=== PATIENT | male | born 1995 | race Asian ===

== ENCOUNTER 2023-08-13 00:12 | Emergency (ER) | payer OTHER, MEDICAID, SELFPAY ==
[2023-08-13] VITALS (11 sets, daily range): BP systolic 143–192; BP diastolic 85–106; PULSE 105–125; RESP 18–37; TEMP 37.1; O2SAT 96–99; BMI 45.6
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
[2023-08-13] MEDS: HALOPERIDOL 5 MG/ML VIAL IM (00:28)
[2023-08-13] MEDS: diphenhydrAMINE 50 MG/ML VIAL IM (00:28)
[2023-08-13] MEDS: LORazepam 2 MG/ML INJ IM (00:28)
[2023-08-13 00:53] LABS: Appearance Urine UA CLEAR; Bilirubin Urine UA NEGATIVE (NEGATIVE); Color Urine UA YELLOW; Glucose Urine UA 3+ g/dL (Negative); Ketones Urine UA TRACE (NEGATIVE); Leukocyte Esterase Urine UA NEGATIVE (NEGATIVE); Nitrite Urine UA NEGATIVE (Negative); Occult Blood Urine UA TRACE-INTACT (Negative); Protein Urine UA 1+ (Negative); Specific Gravity Urine UA <=1.005 (1.000-1.035); UR Morphine/Opiate cutoff 300 Negative (Negative); Ur Creatinine Normal (Normal); Ur Specific Gravity Normal (Normal); Urine Amphetamines Negative (Negative); Urine Barbiturates Negative (Negative); Urine Benzodiazepines Negative (Negative); Urine Cocaine Negative (Negative); Urine MDMA Negative (Negative); Urine Methadone Negative (Negative); Urine Methamphetamines Negative (Negative); Urine Oxycodone Negative (Negative); Urine Phencyclidine Negative (Negative); Urine Tetrahydrocannabinol Negative (Negative); Urine Tricyclic Antidepressant Negative (Negative); Urine pH Normal (Normal); Urobilinogen Urine UA 0.2 E.U./dL (0.2); pH Urine UA 6.5 (4.5-8.0)
[2023-08-13 00:57] LABS: Bacteria Urine None Seen; Culture Indicated Urine Cult Not Indicated; RBC Urine 1-5/HPF (0-5/HPF); Squamous Epithelial Cell Urine 0-1 /HPF (0-5/HPF); Transitional Epi Cells Urine 0-1/HPF (0-5/HPF); Urine Volume 10mL (spun); WBC Urine 0-1/HPF (0-5/HPF)
[2023-08-13 00:57] LABS: INR 0.9 (0.9-1.3); Prothrombin Time 10.4 SECONDS (9.4-12.5)
[2023-08-13 00:58] LABS: Add Manual Diff / Slide Review NO; Basophils Absolute Auto 100 /uL (0-100); Basophils Percent Auto 0.7 % (0-2); Eosinophils Absolute Auto 100 /uL (0-450); Eosinophils Percent Auto 0.4 % (2-4); Hematocrit 49.6 % (41-53); Hemoglobin 16.3 g/dL (13.5-17.5); Lymphocytes Absolute Auto 4800 /uL (1100-4500); Mean Corpuscular HGB Conc 32.9 % (30-36); Mean Corpuscular Hemoglobin 29.4 PG (26-34); Mean Corpuscular Volume 89.5 fL (80-100); Monocytes Absolute Auto 900 /uL (0-900); Monocytes Percent Auto 6.8 % (3-14); Neutrophils Absolute Auto 7800 /uL (1500-7000); Neutrophils Percent Auto 57.1 % (50-75); Platelet Count 390 X10^3/uL (150-400); Red Blood Cell Count 5.54 X10^6/uL (4.5-5.9); Red Cell Distribution Width 12.8 % (11.6-14.8); White Blood Cell Count 13.7 X10^3/uL (4.5-11.0)
[2023-08-13 01:04] LABS: Acetaminophen < 10 ug/mL (10-30); Albumin 4.9 g/dL (3.5-5.0); Albumin Globulin Ratio 1.1 (1.0-2.8); Alkaline Phosphatase 102 U/L (38-126); Aspartate Aminotransferase 48 IU/L (17-59); BUN Creatinine Ratio 12.8 (6-22); Bilirubin Total 0.7 mg/dL (0.2-1.3); Blood Urea Nitrogen 11 mg/dL (9-20); Calcium 9.8 mg/dL (8.4-10.2); Carbon Dioxide 16 mmol/L (22-32); Chloride 99 mmol/L (98-107); Creatine Kinase 1332 U/L (55-170); Estimated Glomerular Filt Rate > 60 mL/min (>60); Ethanol (ETOH) < 10 mg/dL; Globulin 4.5 g/dL (1.7-4.1); Glucose 396 mg/dL (70-100); Lipase 216 U/L (23-300); Potassium 4.2 mmol/L (3.4-5.1); Salicylate < 1.0 mg/dL (<20); Sodium 138 mmol/L (137-145); Total Protein 9.4 g/dL (6.3-8.2)
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
[2023-08-13 01:10] LABS: Alanine Aminotransferase 38 IU/L (<50); HEMOLYSIS 27 (0-50)
[2023-08-13 01:14] LABS: Troponin I < 0.012 ng/mL (0.01-0.034)
[2023-08-13] MEDS: SODIUM CHLORIDE 0.9% 1,000 ML 1000 ML IV ×2 (01:18→02:01)
--- NOTE | 2023-08-13 01:19 | PC.NURSE ---
Lab call taken for critical result. Lactate 9.0 and Glucose 396. BOYD Pierre advised.
[2023-08-13 01:34] LABS: Thyroid Stimulating Hormone 2.84 uIU/mL (0.47-4.68)
--- NOTE | 2023-08-13 01:55 | PC.NURSE ---
Pt declines to contact family members. Pt states that he lives with his parents and that they are probably sleeping and would not want to here from him.
--- NOTE | 2023-08-13 02:09 | PC.NURSE ---
Escorted pt to and from CT
--- NOTE | 2023-08-13 02:11 | PC.NURSE ---
Still in CT with pt during this check
[2023-08-13 02:23] LABS: Reflexed Lactate in 2 Hours Y
[2023-08-13 02:59] LABS: Lactate 2HR (Lactic Acid Rflx) 1.7 mmol/L (0.7-2.1)
== END 2023-08-13 03:28 | disposition home or self-care (01) ==
PROVIDERS: Emergency Provider Emergency Medicine; PCP Pediatrics
DX: R73.9 Hyperglycemia, unspecified (principal); R46.89 Other symptoms and signs involving appearance and behavior; S09.90XA Unspecified injury of head, initial encounter; V89.2XXA Person injured in unspecified motor-vehicle accident, traffic, initial encounter
CPT/HCPCS: 36415; 70450; 71045; 72125; 80053; 80305; 80320; 80329; 81001; 82550; 83605; 83690; 84443; 84484; 85025; 85610; 96360; 96361; 96372; 99285; G0480; J1200; J1630; J2060

== ENCOUNTER 2023-08-13 08:14 | Emergency (ER) | payer OTHER, MEDICAID, SELFPAY ==
[2023-08-13] VITALS (14 sets, daily range): BP systolic 119–176; BP diastolic 60–100; PULSE 86–111; RESP 17–23; TEMP 36.6; O2SAT 96–100; BMI 47.0
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
[2023-08-13] MEDS: OLANZapine ODT 10 MG TAB PO (08:51)
[2023-08-13] MEDS: SODIUM CHLORIDE 0.9% 1,000 ML 1000 ML IV ×2 (08:51→09:56)
[2023-08-13 08:52] LABS: Acetaminophen < 10 ug/mL (10-30); Add Manual Diff / Slide Review NO; Basophils Absolute Auto 100 /uL (0-100); Eosinophils Absolute Auto 0 /uL (0-450); Eosinophils Percent Auto 0.3 % (2-4); Hematocrit 44.8 % (41-53); Lymphocytes Absolute Auto 2300 /uL (1100-4500); Lymphocytes Percent Auto 19.8 % (25-40); Mean Corpuscular HGB Conc 33.5 % (30-36); Mean Corpuscular Hemoglobin 29.2 PG (26-34); Monocytes Absolute Auto 900 /uL (0-900); Monocytes Percent Auto 7.6 % (3-14); Neutrophils Absolute Auto 8400 /uL (1500-7000); Neutrophils Percent Auto 71.3 % (50-75); Platelet Count 308 X10^3/uL (150-400); Red Blood Cell Count 5.15 X10^6/uL (4.5-5.9); Red Cell Distribution Width 12.7 % (11.6-14.8); Salicylate < 1.0 mg/dL (<20); White Blood Cell Count 11.8 X10^3/uL (4.5-11.0)
[2023-08-13 08:53] LABS: Alanine Aminotransferase 31 IU/L (<50); Albumin 4.5 g/dL (3.5-5.0); Albumin Globulin Ratio 1.2 (1.0-2.8); Alkaline Phosphatase 89 U/L (38-126); Aspartate Aminotransferase 62 IU/L (17-59); BUN Creatinine Ratio 16.1 (6-22); Bilirubin Total 0.8 mg/dL (0.2-1.3); Blood Urea Nitrogen 10 mg/dL (9-20); Calcium 9.2 mg/dL (8.4-10.2); Carbon Dioxide 22 mmol/L (22-32); Chloride 103 mmol/L (98-107); Estimated Glomerular Filt Rate > 60 mL/min (>60); Ethanol (ETOH) < 10 mg/dL; Globulin 3.7 g/dL (1.7-4.1); Glucose 318 mg/dL (70-100); HEMOLYSIS < 15 (0-50); Potassium 3.9 mmol/L (3.4-5.1); Sodium 137 mmol/L (137-145); Total Protein 8.2 g/dL (6.3-8.2)
[2023-08-13 09:11] LABS: Creatine Kinase 4813 U/L (55-170)
[2023-08-13 09:12] LABS: Ur Creatinine Normal (Normal); Ur Specific Gravity Normal (Normal); Urine Tetrahydrocannabinol Negative (Negative); Urine pH Normal (Normal)
[2023-08-13 09:13] LABS: Appearance Urine UA CLEAR; Bilirubin Urine UA NEGATIVE (NEGATIVE); Color Urine UA YELLOW; Glucose Urine UA 3+ g/dL (Negative); Ketones Urine UA 1+ (NEGATIVE); Leukocyte Esterase Urine UA NEGATIVE (NEGATIVE); Nitrite Urine UA NEGATIVE (Negative); Occult Blood Urine UA TRACE-INTACT (Negative); Protein Urine UA 2+ (Negative); UR Morphine/Opiate cutoff 300 Negative (Negative); Urine Amphetamines Negative (Negative); Urine Barbiturates Negative (Negative); Urine Benzodiazepines Positive (Negative); Urine Cocaine Negative (Negative); Urine MDMA Negative (Negative); Urine Methadone Negative (Negative); Urine Methamphetamines Negative (Negative); Urine Oxycodone Negative (Negative); Urine Phencyclidine Negative (Negative); Urine Tricyclic Antidepressant Negative (Negative); Urine Volume 10mL (spun); Urobilinogen Urine UA 0.2 E.U./dL (0.2); pH Urine UA 5.5 (4.5-8.0)
[2023-08-13 09:16] LABS: Bacteria Urine None Seen; Culture Indicated Urine Cult Not Indicated; RBC Urine None Seen (0-5/HPF); Squamous Epithelial Cell Urine None Seen (0-5/HPF); WBC Urine None Seen (0-5/HPF)
--- NOTE | 2023-08-13 09:28 | PC.NURSE ---
Since arrival patient has made several comments about this RN appearance including Damn, you look good. during triage. Patient was asked not to comment on staff appearance at that time. Patient at another statement later stating You're so sexy. Patient again asked not to comment on staff appearance. When informed about a urine sample being needed patient stated You cannot see my penis yet!. This RN left room and asked two aides to assist patient in collection of urine sample. Charge nurse informed of patient inappropriate comments to this RN.
[2023-08-13 09:41] LABS: TSH w/ Reflex to FT4 2.71 uIU/mL (0.47-4.68)
--- NOTE | 2023-08-13 10:15 | PC.NURSE ---
Pt ambulated in the hallway to the bathroom with DIRECTOR ENVIRONMENTAL stand by assist. Pt's underwear were wet and changed patient into clean, dry undergarments. Bed linens changed. Pt given warm blankets. Call light in reach.
--- NOTE | 2023-08-13 10:21 | CM.MNRNOTE ---
PT reports that he would like to go home to rest in my own bed instead of waiting for social work. I asked patient if he could get a ride home with family, pt states yes, either my mom or close friend. I inquired if he knew their phone numbers, pt does not know. He has no cell phone or belongings with him. Pt updated to wait while I notify the provider.
[2023-08-13 11:53] LABS: Creatine Kinase 4805 U/L (55-170)
--- NOTE | 2023-08-13 12:00 | PC.NURSE ---
Pt door closed, patient visible laying back in bed talking to himself in the room. Pt janny Yeah, lets do this! Let's f sh up!. I went into the room to talk to patient. Lunch tray given to patient, pt states Yeah! I didnt realize how hungry I am. Pt sitting up in bed eating.
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
== END 2023-08-13 13:28 | disposition home or self-care (01) ==
PROVIDERS: Emergency Provider Emergency Medicine; PCP Pediatrics
DX: R74.8 Abnormal levels of other serum enzymes (principal)
CPT/HCPCS: 36415; 80053; 80305; 80320; 80329; 81001; 82550; 82962; 84443; 85025; 93005; 96360; 96361; 99284; 99285; G0480